=== PATIENT | female | born 1990 | race Caucasian/White ===

== ENCOUNTER 2017-11-11 06:03 | Day surgery (SDC) | payer BC, SELFPAY | END 2017-11-11 09:55 | disposition home or self-care (01) | PROVIDERS: Family Provider Internal Medicine Adolescent Medicine; Visit Provider Otolaryngology | DX: J03.91 Acute recurrent tonsillitis, unspecified (principal); J35.01 Chronic tonsillitis | CPT/HCPCS: 42826; 81025; 96375 ==

== ENCOUNTER → 2021-02-09 14:32 | Outpatient (CLI) | payer BC, SELFPAY ==
[2021-02-09 14:55] LABS: Basophils % 0.3 % (0.1-2.0); Eosinophils % 0.4 % (0.1-12.0); Hematocrit 39.6 % (37.0-47.0); Hemoglobin 13.4 g/dL (12.2-16.2); Lymphocytes # 1.9 K/mm3 (0.7-4.5); Lymphocytes % 18.9 % (10-50); Mean Corpuscular HGB Conc 33.8 g/dL (31.8-35.4); Mean Corpuscular Hemoglobin 29.5 pg (27.0-31.2); Mean Corpuscular Volume 87.2 fl (81-99); Mean Platelet Volume 8.1 fl (7.4-10.4); Monocytes # 0.3 K/mm3 (0.1-1.0); Monocytes % 3.3 % (1.7-9.3); Neutrophils # 7.8 K/mm3 (1.8-7.8); Platelet Count 223 K/mm3 (142-424); Red Blood Count 4.54 M/mm3 (4.20-5.40); Red Cell Distribution Width 12.7 % (11.5-17.5); White Blood Count 10.2 K/mm3 (4.8-10.8)
[2021-02-09 15:38] LABS: Chloride 107 mmol/L (98-107)
[2021-02-09 15:39] LABS: Sodium 137 mmol/L (136-145)
[2021-02-09 15:42] LABS: Blood Urea Nitrogen 13 mg/dl (7-17); Calcium 9.5 mg/dl (8.4-10.2); Carbon Dioxide 25 mmol/L (22.0-30.0); Estimated Glomerular Filt Rate 144 ml/min (>60); GFR (African American) 174 ML/MIN (>60); Glucose 101 mg/dl (74-100)
[2021-02-09 15:57] LABS: Coronavirus 19 IgG Antibody Negative (Negative); Coronavirus 19 IgM Antibody Negative (Negative)
== END ==
PROVIDERS: Visit Provider Nurse Practitioner Obstetrics & Gynecology
DX: Z01.818 Encounter for other preprocedural examination (principal); Z20.822 Contact with and (suspected) exposure to COVID-19; O03.9 Complete or unspecified spontaneous abortion without complication
CPT/HCPCS: 36415; 80048; 85025; 86328

== ENCOUNTER 2021-02-10 06:12 | Day surgery (SDC) | payer BC, SELFPAY ==
[2021-02-10] VITALS (11 sets, daily range): BP systolic 108–127; BP diastolic 64–85; PULSE 70–91; RESP 16–20; TEMP 36.5–43; O2SAT 97–100; BMI 24.0
--- NOTE | 2021-02-10 08:11 | HMH.OPNOTE ---
Date of procedure: 02/10/21 Pre-op Diagnosis:: Missed Post-op Diagnosis:: Missed Procedure performed:: Dilation and curettage with Alberto suction Surgeon:: Sy Hernandez MD PLASTICS TECHNICIAN:: Other Anesthesia: GETA Estimated blood loss (mL): 100 Clinical Note:: She is a 30-year-old 5 para 2 aborta 2 who is about 9 weeks gestational age. She had an ultrasound last week that showed an intrauterine gestation but no fetus. We repeated her ultrasound again this week and once again there was no heart rate activity and an extremely small fetus. As result of that we elected perform a dilation and curettage with Baraga suction. Operative findings:: She had an anteverted bulky uterus consistent with a 6-week 7-week gestational age Operative note:: She was taken the operating room where general anesthesia was found be adequate. She was prepped and draped in normal sterile fashion in the lithotomy position. Weighted speculum is placed in the vagina and the anterior lip of the cervix was grasped with a tenaculum. Gutierrez dilators were used to dilate the cervix to approximately 10 mm. Then using a curved Alberto suction curette I evacuated the uterine contents. This was followed by gentle curettage. She tolerated procedure well and was taken to the recovery room in excellent condition. All sponge, instrument and needle counts were correct. The estimated blood loss was approximately 100 cc. Condition: stable Disposition: PACU Specimens:: Products of conception Complications:: None
--- NOTE | 2021-02-10 14:44 | P.PN_ITS ---
[facility] Anesthesia Checklist - Patient Identification Patient Identification: Arm Band - Structural Data Admitted From: Home Planned Operative Procedure/s: D & E Consent for Planned Operative Procedure(s) Verified: Yes Verified Documents: Surgical Consent, History and Physical - NPO Status Verified Time NPO: 00:00 - Additional verifications Anesthesia Reactions: No Hx Blood Transfusions: No Blood Transfusion Reaction: No - Airway Assessment C-Spine Mobility Assessed: Yes TMJ Mobility Assessed: Yes Dentition: Good Dentition - Neurological Assessment Level of Consciousness: Awake, Alert - Anesthesia Plan Anesthesia Risk discussed: Yes Anesthesia Plan: Verified ASA Class: II Anesthesia Type: General [facility] History I have reviewed the patient's past medical history: Yes Medical History: Denies:: Cancer, Diabetes Mellitus Type 1, Diabetes Mellitus Type 2, Internal Pacemaker, MRSA, Seizures *Have you ever received a pneumonia vaccine?: No *Have you received a flu vaccine this season?: No Other Medical History: Denies: Blood Transfusion Reaction Anesthesia experience/problems:: None Laterality Cases: Bilateral: Tonsillectomy Other Surgeries: Yes: , Dilation and Curettage, Other. No: Pacemaker Amputation: No Fractures: No - *Social History Last grade of school completed: Advanced degree Smoking Status: Never smoker Alcohol Intake: current Alcohol Intake Frequency:: holidays/special occasions only Substance Use Type: denies use *Occupational Status:: employed Housing: house Household Members: family *Travel in the last 8 weeks: None Family Hx:: No significant family history ERP MANAGER history: Spontaneous
--- NOTE | 2021-02-10 14:46 | HMH.ANESI ---
[facility] Anesthesia Record Part I Intake, IV Amount: 800 Estimated blood loss (mL): 100 Urine output (mL): 0 Blood Pressure: 127/78 SaO2: 100 Pulse Rate: 84 Respiratory Rate: 16 Temperature: 98.5 F Patient is:: Drowsy, Stable
--- NOTE | 2021-02-11 13:37 | HMH.ANESII ---
[facility] Anesthesia Record Part II Discharge Time: 08:22 Destination: [facility] PACU nurse assessment reviewed?: Yes Patient Condition:: Good Anesthesia Complications:: None Swallowing reflex intact?: Yes Cyanosis?: No Blood Pressure: 126/85 Pulse Rate: 83 Temperature: 97.7 F Mental Status: Alert & Oriented Pain level:: 0 Nausea and/or vomitting:: None Intake, IV Amount: 1,500
[2021-02-11 13:38] VITALS: BP 126/85; PULSE 83; TEMP 36.5
== END 2021-02-10 09:08 | disposition home or self-care (01) ==
LOC: OR 06:14
PROVIDERS: PCP Internal Medicine Adolescent Medicine; Visit Provider Nurse Practitioner Obstetrics & Gynecology
PROC: (CPT 59820; principal; 2021-02-10 07:30)
DX: O02.1 Missed abortion (principal); Z88.8 Allergy status to other drugs, medicaments and biological substances
CPT/HCPCS: 59820; 96374; J2405

== ENCOUNTER → 2022-06-09 10:47 | Outpatient (CLI) | payer BC, SELFPAY ==
[2022-06-10 06:11] LABS: HSV 1 IgG, Type Spec <0.91 index (0.00-0.90); HSV 2 IgG, Type Spec <0.91 index (0.00-0.90)
[2022-06-10 10:44] LABS: Rapid Plasma Reagin Ab Titer Non Reactive (NonRea<1:1)
[2022-06-10 22:32] LABS: HIV Screen 4th Generation wRfx Non Reactive; Hep A Ab, IgM Negative; Hepatitis B Core Antibody IgM Negative; Hepatitis B Surface Antigen Negative; Hepatitis C Antibody <0.1
[2022-06-11 22:47] LABS: Neisseria gonorrhoeae, NAA Negative (Negative)
== END ==
PROVIDERS: PCP Internal Medicine Adolescent Medicine; Visit Provider Nurse Practitioner Obstetrics & Gynecology
DX: Z72.51 High risk heterosexual behavior (principal); Z11.4 Encounter for screening for human immunodeficiency virus [HIV]
CPT/HCPCS: 36415; 80074; 86592; 86695; 86703; 86790; 87491; 87591; G0432